=== PATIENT | female | born 1980 | race Caucasian/White ===

== ENCOUNTER 2017-02-21 00:11 | Emergency (ER) | payer SELFPAY ==
[2017-02-21] MEDS ORDERED: LIDOCAINE 2% INJ-PF (20 MG/ML) 10 ML AMPUL INFIL ONE (02:30)
--- NOTE | 2017-02-21 03:33 | ER Document Report ---
ED General - General Chief Complaint: Abscess Stated Complaint: LEG INJURY Time Seen by Provider: 02/21/17 02:21 Mode of Arrival: Ambulatory Information source: Patient, Friend Notes: Patient is a 36-year-old female comes emergency room complaining of having open draining abscess on her right leg near the knee. She states that about 1-1/2 weeks ago she noticed a pimple develop on the lateral side of the right knee inferior to the patella and she attempted to pop it multiple times. Over the course of this past week and a half she has applied pressure and popping it she is attempted to open it with a needle with no success. She does state that her friends have helped her by using warm moist compresses and they have been applying pressure underneath and pushing the pus outward. Patient states that her neighbor is a nurse and told her to come to ER. TRAVEL OUTSIDE OF THE [place] IN LAST 30 DAYS: No - HPI Patient complains to provider of: Draining abscess right knee Onset: Other - 1.5 weeks Onset/Duration: Gradual, Constant, Persistent Quality of pain: Achy, Sharp Severity: Moderate Pain Level: 3 Associated symptoms: None Exacerbated by: Standing, Movement, Walking, Other - Kneeling down Relieved by: Denies Similar symptoms previously: No Recently seen / treated by doctor: No - Related Data Allergies/Adverse Reactions: No Known Allergies Allergy (Verified 02/21/17 00:19) Home Medications: Current Home Medications Diclofenac Potassium [Cambia] 1 packet PO PRN PRN 02/21/17 [History] Past Medical History - General Information source: Patient - Social History Smoking Status: Current Every Day Smoker Cigarette use (# per day): Yes - Half-pack a day Smoking Education Provided: Yes Frequency of alcohol use: Rare Drug Abuse: None Lives with: Spouse/Significant other Family History: Reviewed & Not Pertinent Patient has suicidal ideation: No Patient has homicidal ideation: No - Past Medical History Cardiac Medical History: Reports: Hx Hypertension Neurological Medical History: Reports: Hx Migraine Renal/ Medical History: Reports: Hx Kidney Stones. Denies: Hx Peritoneal Dialysis Review of Systems - Review of Systems Constitutional: No symptoms reported EENT: No symptoms reported Cardiovascular: No symptoms reported Respiratory: No symptoms reported Gastrointestinal: No symptoms reported Genitourinary: No symptoms reported Female Genitourinary: No symptoms reported Musculoskeletal: No symptoms reported Skin: See HPI Hematologic/Lymphatic: No symptoms reported Neurological/Psychological: No symptoms reported -: Yes All other systems reviewed and negative Physical Exam - Vital signs Vitals: Temp Pulse Resp BP Pulse Ox 97.8 F 92 14 163/103 H 99 02/21/17 00:19 02/21/17 00:19 02/21/17 00:19 02/21/17 00:19 02/21/17 00:19 - General General appearance: Alert In distress: None - HEENT Head: Normocephalic, Atraumatic - Respiratory Respiratory status: No respiratory distress Chest status: Nontender Breath sounds: Normal - Cardiovascular Rhythm: Regular Heart sounds: Normal auscultation Murmur: No - Extremities General upper extremity: Normal inspection General lower extremity: Tender, Normal ROM, Normal temperature, Normal weight bearing Knee: Nontender, Pain with ROM, Other - Neurological Neuro grossly intact: Yes Cognition: Normal Orientation: AAOx4 [place] Coma Scale Eye Opening: Spontaneous [place] Coma Scale Verbal: Oriented [place] Coma Scale Motor: Obeys Commands [place] Coma Scale Total: 15 Speech: Normal - Skin Skin Temperature: Warm Skin Moisture: Moist Skin Color: Erythema, Other - See description under knee. Course - Re-evaluation Re-evalutation: 02/21/17 03:36 Area was cleaned with Hibiclens and then I used 2% lidocaine injected into the surrounding tissue in order to obtain a tissue kind of block. Once that was complete patient had no feeling in the area I used Hibiclens and sterile water and I scrubbed the wound extensively. This caused the area to bleed extensively as well. I then flushed with 1000 mL's of normal saline and applied Neosporin/bacitracin to the area with a nonstick dressing and Coban and to keep it firm. Patient tolerated procedure without any problem at all. I have informed her to monitor this very closely any change or feel like it is getting worse she is to return to ER once and she is also to come back in 72 hours for a recheck regardless. I have also given her the name of good Rx and explained her how it works [facility] for the end of biotic would be her cheapest place. - Vital Signs Vital signs: Temp Pulse Resp BP Pulse Ox 97.8 F 92 14 163/103 H 99 02/21/17 00:19 02/21/17 00:19 02/21/17 00:19 02/21/17 00:19 02/21/17 00:19 Discharge - Discharge Clinical Impression: Cellulitis of knee, right, Abscess Disposition: HOME, SELF-CARE Instructions: Abscess (OM), Oral Narcotic Medication (OM) Additional Instructions: Home and rest. Medications prescribed. As we discussed change dressing at least twice a day and 1 dirty or wet. Use the bacitracin/Neosporin as well. As we discussed wash with clean water and the Hibiclens soap I gave you once a day for 1 dirty as well. I want to see her back emergency room in 48-72 hours for recheck to make sure it is healing well. Do not get in the bathtub do not get it excessively dirty. If you have any concerns or problems that this is not healing appropriately before the 72 hours is up return to ER sooner for a recheck. Take all antibiotics as prescribed. Prescriptions: Cephalexin [Cephalexin 500 MG Tablet] 1 tab PO QID #40 tablet Cephalexin [Cephalexin 500 MG Tablet] 1 tab PO QID #28 tablet Fluconazole [Diflucan] 150 mg PO ONCE PRN #1 tablet PRN Reason: Fluconazole [Diflucan] 150 mg PO ONCE PRN #1 tablet PRN Reason: Sulfamethoxazole/Trimethoprim [Bactrim Ds Tablet] 1 each PO BID #20 tablet Forms: Parent Work Note, Elevated Blood Pressure
--- NOTE | 2017-02-21 03:41 | RADIOLOGY REPORT (SQ) ---
EXAM DESCRIPTION: KNEE RIGHT 2 VIEWS COMPLETED DATE/TIME: 02/21/2017 2:48 am REASON FOR STUDY: ? FB in right knee/ COMPARISON: None. NUMBER OF VIEWS: Two views. TECHNIQUE: AP and lateral radiographic images acquired of the right knee. LIMITATIONS: None. FINDINGS: MINERALIZATION: Normal. BONES: No acute fracture or dislocation. No worrisome bone lesions. Minimal inferior osteophyte of the patella. JOINT: No effusion. SOFT TISSUES: Infrapatellar soft tissue defect. No radiopaque foreign body. OTHER: No other significant finding. IMPRESSION: No radiopaque foreign body. TECHNICAL DOCUMENTATION: JOB ID: [id number] [employer]- All Rights Reserved
[2017-02-21] MEDS ORDERED: HYDROCODONE/ACETAMINOPHEN 5-325 MG 6 TAB/DSPK PO PRN (03:51)
[2017-02-21 04:21] VITALS: BP 143/101
== END 2017-02-21 04:09 | disposition home or self-care (01) ==
LOC: ER 00:11
DX: L03.115 Cellulitis of right lower limb (principal); L02.415 Cutaneous abscess of right lower limb; F17.210 Nicotine dependence, cigarettes, uncomplicated
CPT/HCPCS: 99283